=== PATIENT | female | born 1990 | race Caucasian/White ===

== ENCOUNTER 2018-01-22 22:00 | Inpatient (IN) | payer BC ==
[2018-01-22 22:40] VITALS: BMI 32.6
[2018-01-22] MEDS ORDERED: Ondansetron HCl/PF 4 MG/2 ML Vial IVP PRN (23:15)
[2018-01-22] MEDS ORDERED: Promethazine HCl 25 MG/ML VIAL IM PRN (23:15)
[2018-01-22] MEDS ORDERED: Acetaminophen 500 MG TAB PO PRN (23:15)
[2018-01-22 23:19] LABS: Hemoglobin 13.1 g/dL (12.0-16.0); Mean Corpuscular HGB CONC 35.3 g/dL (32.0-36.0); Mean Corpuscular Hemoglobin 32.5 pg (27.0-31.0); Mean Platelet Volume 10.5 fL (7.4-10.4); Platelet Count 140 thou/uL (130-400); RBC Distribution Width 11.6 % (11.5-14.5); Red Blood Cell (RBC) Count 4.03 mill/uL (4.20-5.40); White Blood Cell (WBC) Count 11.2 thou/uL (4.8-10.8)
[2018-01-22] MEDS: Lactated Ringer's 1,000 ML IV SCH (23:23)
[2018-01-22] MEDS ORDERED: LR / Pitocin 40 units/1000 ml 40 UNITS/1,000 ML BAG IV PRN (23:23)
[2018-01-22] MEDS: Misoprostol 100 MCG TAB VAG PRN (23:28)
[2018-01-22] MEDS ORDERED: Ibuprofen 800 MG TAB PO PRN (23:30)
[2018-01-22] MEDS ORDERED: Misoprostol 200 MCG TAB RC PRN (23:30)
[2018-01-22] MEDS ORDERED: Lidocaine 1% (PF) 30 ML VIAL SC PRN (23:30)
[2018-01-22] MEDS ORDERED: LR 500 ML/Oxytocin 10 units 500 ML IV SCH ×2 (23:30)
[2018-01-22] MEDS ORDERED: HYDROcodone/Acetaminophen 5/325 mg Tablet PO PRN (23:30)
[2018-01-22 23:56] LABS: Syphilis Antibody Nonreactive (Nonreactive); Syphilis Antibody Index 0.02 S/CO (<1.00 Non-Reactive)
[2018-01-23 00:35] LABS: HBSAg Index 0.14 S/CO (0-0.99); Hep B Surf Ag Non-Reactive S/CO (NonReactive)
[2018-01-23] MEDS: Misoprostol 100 MCG TAB VAG PRN (02:43)
[2018-01-23] MEDS: Lactated Ringer's 1,000 ML IV SCH ×3 (05:29→13:49)
[2018-01-23] MEDS ORDERED: Penicillin G Potassium 5 MILL.UNITS in Sodium Chloride 0.9% 100 ML IVPB SCH (07:00)
[2018-01-23] MEDS ORDERED: DISCONTINUE ALL PREVIOUS NARCOTICS FS SCH (09:30)
[2018-01-23] MEDS ORDERED: Eucerin (Mineral Oil/Petrolatum,White) 30 gm Jar TOP PRN ×2 (11:02→19:46)
[2018-01-23] MEDS ORDERED: Ondansetron HCl/PF 4 MG/2 ML Vial IVP PRN ×6 (11:02→21:16)
[2018-01-23] MEDS ORDERED: Promethazine HCl 25 MG/ML VIAL IM PRN ×3 (11:02→20:57)
[2018-01-23] MEDS ORDERED: Lactated Ringer's 500 ML IV PRN (11:02)
[2018-01-23] MEDS: Bupivacaine 0.5% 20 ML, Fentanyl 400 MCG in Sodium Chloride 0.9% 72 ML EPIDURAL SCH ×2 (11:02→17:40)
[2018-01-23] MEDS ORDERED: diphenhydrAMINE 50 MG/ML VIAL IVP PRN ×3 (11:02→20:57)
[2018-01-23] MEDS ORDERED: ePHEDrine/0.9% NaCl/PF SYRINGE 50 mg/10 ml SLOW IVP PRN (11:02)
[2018-01-23] MEDS ORDERED: Naloxone HCl 0.4 mg/ml Vial IVP PRN ×6 (11:02→20:57)
[2018-01-23] MEDS ORDERED: Acetaminophen 325 MG TAB PO PRN ×2 (11:02→21:16)
[2018-01-23] MEDS ORDERED: Communication Order-Pharmacy FS SCH ×3 (11:15→21:00)
[2018-01-23] MEDS ORDERED: Fentanyl 4mcg/Marcaine 0.1% Cassette 100 ML EPIDURAL SCH (11:15)
[2018-01-23] MEDS: Penicillin G Potassium 2.5 MILL.UNITS in Sodium Chloride 0.9% 100 ML IVPB SCH ×2 (17:42→17:48)
[2018-01-23] MEDS ORDERED: Penicillin G 2.5 MILL.units 50 ML ONE (18:24)
[2018-01-23] MEDS ORDERED: Penicillin G Potassium 2.5 MILL.UNITS in Sodium Chloride 0.9% 50 ML IVPB SCH (19:00)
[2018-01-23] MEDS ORDERED: Bicitra 30 ML UDCUP ONE (19:22)
[2018-01-23] MEDS ORDERED: CEFAZOLIN/Water 2 GM/20 ML SYRINGE ONE (19:23)
[2018-01-23] MEDS ORDERED: Fentanyl 100 MCG/2 ML VIAL ONE (19:24)
[2018-01-23] MEDS ORDERED: Morphine PF 1 MG/ML SYR ONE (19:33)
[2018-01-23] MEDS ORDERED: Ondansetron HCl/PF 4 MG/2 ML Vial ONE (19:34)
[2018-01-23] MEDS ORDERED: Dexamethasone 4 mg/ml Vial ONE (19:34)
[2018-01-23] MEDS ORDERED: Oxytocin 10 UNITS/ML VIAL ONE (19:34)
[2018-01-23] MEDS ORDERED: Ketorolac Tromethamine 30 MG/ML VIAL ONE (19:34)
[2018-01-23] MEDS ORDERED: Naloxone HCl 0.4 mg/ml Vial IV PRN ×2 (19:46→20:57)
[2018-01-23] MEDS ORDERED: Ketorolac Tromethamine 30 MG/ML VIAL IVP PRN ×2 (19:46→20:57)
[2018-01-23] MEDS ORDERED: HYDROmorphone 2 MG/ML VIAL SLOW IVP PRN ×2 (19:46→20:57)
[2018-01-23] MEDS ORDERED: Meperidine HCl/PF 25 MG/ML VIAL SLOW IVP PRN ×2 (19:46→20:57)
[2018-01-23] MEDS ORDERED: Promethazine HCl 25 MG SUPP PR PRN ×2 (19:46→20:57)
[2018-01-23] MEDS ORDERED: Ketorolac Tromethamine 30 MG/ML VIAL IVP SCH ×2 (20:00→21:00)
[2018-01-23] MEDS ORDERED: Hydrocerin (Eucerin) Cream 120 gm Jar TOP PRN (20:57)
[2018-01-23] MEDS ORDERED: Bisacodyl 10 MG SUPP PR PRN (21:16)
[2018-01-23] MEDS ORDERED: Lanolin Ointment 7 GM TUBE TOP PRN (21:16)
[2018-01-23] MEDS ORDERED: Ferrous Sulfate 325 MG TAB PO SCH (21:45)
[2018-01-23] MEDS ORDERED: Docusate Calcium (SURFAK) 240 MG CAP PO SCH (21:45)
[2018-01-23] MEDS ORDERED: Meperidine HCl/PF 25 MG/ML VIAL ONE (21:46)
[2018-01-23] MEDS ORDERED: Morphine 2 MG/ML SYRINGE ONE (22:58)
--- NOTE | 2018-01-24 00:30 | OP ---
DATE OF PROCEDURE: 01/23/2018 PRIMARY OB: Sonya Cazares MD PREOPERATIVE DIAGNOSES: 1. Intrauterine at 40 and 6 days. 2. Nonreassuring heart tones. 3. Remote from delivery. POSTOPERATIVE DIAGNOSES: 1. 40 weeks and 6-day intrauterine . 2. Nonreassuring heart tones. 3. Straight occiput posterior presentation. 4. Body and arm cord. PROCEDURE: Primary lower transverse section. ANESTHESIA: Epidural. SURGEON: José Miguel Sanchez MD AERIAL TRAM OPERATOR: Sonya Cazares MD COMPLICATIONS: None. COUNTS: Correct. ESTIMATED BLOOD LOSS: 800 mL. URINE: Clear at the end of procedure. FINDINGS: Male infant in OP presentation at 40 weeks and 6 days. Apgars are 9 and 9. Weight is jose vailable at the time of dictation. The infant at time of delivery was noted to have a body and an ar m cord. INDICATIONS FOR PROCEDURE: Ms. Penny Velásquez is a 27-year-old female who was admitted to [facility] for induction of labor, had elective induction of labor at 40 weeks and 6 days, who progressed to 8 cm throughout the laboring process. The fetus was noted to have multiple variables that have w orsened with time and became more severe and deep, such that Pitocin was turned off for several hours with persisting and worsening variable decelerations. Fetus was felt to be asynclitic and OP. Dr. Cazares and her patient discussed her options and recommended , which I agreed was the best nex t option for her. DESCRIPTION OF PROCEDURE: After discussing the risks and benefits, the patient was taken to the oper ating room with a bolused epidural and placed in dorsal supine position with a leftward tilt. She wa s prepped and draped in normal sterile fashion. A Pfannenstiel skin incision was made down to the le nasrin of the fascia, which was then incised and extended laterally sharply with Wendy clamps. The fas ginette was then sharply and bluntly dissected off the underlying rectus muscles inferiorly and superiorl y. Peritoneal cavity was entered into bluntly and extended bluntly and sharply. An Jerry O retract or was then inserted for better visualization. A hysterotomy was performed in a lower transverse fas hion and extended with bandage scissors. Infant was noted to be straight OP presentation and was del ivered through the hysterotomy successfully to the sterile field. The infant was then bulb suctioned and the cord was clamped and cut after approximately 1 minute and handed off to the awaiting attenda nts. The placenta was removed manually and uterus was cleared of all clot and debris. The hysteroto my was then closed with #1 Monocryl in a running locked fashion followed by a second imbricating laye r. The serosal edge continued to bleed some and then it was closed with a 3-0 chromic. The Jerry O was removed and the peritoneum was then closed with 3-0 chromic after irrigation and good hemostasis was noted. The fascia was then closed after inspection of the underlying fascia and musculature for hemostasis as the patient has continued to slowly ooze and bleed from the skin down to the muscle. Once the fascia and the muscle were inspected for bleeding, the fascia was closed with 0 Vicryl in a running fashion. The subcutaneous fat was closed in 2 layers with a 2-0 plain gut in an effort to he lp with the hemostasis and close space. The skin was closed with 4-0 Monocryl. The patient was then taken out of leftward supine position and a pressure dressing was applied. The patient was taken to recovery room in stable condition.
[2018-01-24] MEDS: Simethicone Chewable 80 MG TAB PO PRN ×2 (03:10→21:55)
[2018-01-24] MEDS: diphenhydrAMINE 25 MG CAP PO PRN ×2 (04:10→21:55)
[2018-01-24 06:04] LABS: Hemoglobin 11.7 g/dL (12.0-16.0); Mean Corpuscular HGB CONC 33.9 g/dL (32.0-36.0); Mean Corpuscular Hemoglobin 31.5 pg (27.0-31.0); Mean Corpuscular Volume 92.7 fl (81.0-99.0); Mean Platelet Volume 10.1 fL (7.4-10.4); Platelet Count 121 thou/uL (130-400); RBC Distribution Width 11.6 % (11.5-14.5); Red Blood Cell (RBC) Count 3.71 mill/uL (4.20-5.40)
[2018-01-24] MEDS: Ferrous Sulfate 325 MG TAB PO SCH ×2 (08:08→18:04)
[2018-01-24] MEDS: Prenatal Vitamin 1 TAB PO SCH (08:37)
[2018-01-24] MEDS: HYDROcodone/Acetaminophen 5/325 mg Tablet PO PRN ×2 (08:38→21:56)
[2018-01-24] MEDS: Docusate Calcium (SURFAK) 240 MG CAP PO SCH ×2 (08:40→21:55)
[2018-01-24] MEDS: Ibuprofen 800 MG TAB PO SCH ×2 (13:20→21:55)
[2018-01-24] MEDS ORDERED: Lidocaine 2% MPF 10 ML AMP (For Epidural Use) ONE (16:52)
[2018-01-25] MEDS: Ibuprofen 800 MG TAB PO SCH ×3 (05:14→21:39)
[2018-01-25] MEDS ORDERED: Ibuprofen 800 MG TAB PO SCH (06:00)
[2018-01-25] MEDS: Ferrous Sulfate 325 MG TAB PO SCH ×2 (07:41→14:04)
[2018-01-25] MEDS: Prenatal Vitamin 1 TAB PO SCH (09:43)
[2018-01-25] MEDS: Docusate Calcium (SURFAK) 240 MG CAP PO SCH ×2 (09:43→19:59)
[2018-01-25] MEDS: HYDROcodone/Acetaminophen 5/325 mg Tablet PO PRN ×3 (09:51→21:39)
[2018-01-25] MEDS: Simethicone Chewable 80 MG TAB PO PRN ×2 (13:51→19:59)
[2018-01-26] MEDS: Ibuprofen 800 MG TAB PO SCH ×3 (05:44→21:14)
[2018-01-26] MEDS: Ferrous Sulfate 325 MG TAB PO SCH ×2 (08:45→18:13)
[2018-01-26] MEDS: Docusate Calcium (SURFAK) 240 MG CAP PO SCH ×2 (08:45→21:17)
[2018-01-26] MEDS: Prenatal Vitamin 1 TAB PO SCH (08:45)
[2018-01-26] MEDS: Simethicone Chewable 80 MG TAB PO PRN (14:07)
[2018-01-26] MEDS: HYDROcodone/Acetaminophen 5/325 mg Tablet PO PRN (14:07)
[2018-01-27] MEDS: HYDROcodone/Acetaminophen 5/325 mg Tablet PO PRN ×2 (00:20→09:32)
[2018-01-27] MEDS: Ibuprofen 800 MG TAB PO SCH (06:10)
[2018-01-27 08:51] VITALS: TEMP 98
[2018-01-27] MEDS: Ferrous Sulfate 325 MG TAB PO SCH (09:31)
[2018-01-27] MEDS: Prenatal Vitamin 1 TAB PO SCH (09:32)
[2018-01-27] MEDS: Docusate Calcium (SURFAK) 240 MG CAP PO SCH (09:33)
--- NOTE | 2018-01-27 10:51 | PDOC.PP ---
Post Progress Note Post Day #: 4 Subjective: No complaints, going much better yesterday PM and overnight PO intake tolerated: yes Flatus: yes Ambulation: yes Vital Signs (12 hours) Temp Pulse Resp BP BP 01/27/18 08:45 98.0 F 77 20 140/93 H 01/27/18 07:50 98.0 F 77 20 01/27/18 00:15 98.2 F 62 18 129/76 Weight Weight 215 lb - Physical Examination General: NAD Cardiovascular: no m/r/g, RRR Respiratory: clear to auscultation bilaterally, non-labored breathing Abdominal: + bowel sounds, lochia, no distention, appropriately TTP Skin: CS incision dry & intact, no rash Psychiatric: A&Ox3, normal affect Result Diagrams: 01/24/18 05:09 Additional Labs: Post Labs Hep Bs Antigen Non-Reactive S/CO (NonReactive) 01/22/18 22:51 (1) delivery delivered Code(s): O82 - ENCOUNTER FOR DELIVERY WITHOUT INDICATION Status: Acute - Assessment/Plan Post op day number 4, doing well. Routine care. Discharge home today. F/U in 2 weeks with me. Baby to F/U on Tuesday to check in about feeding.
[2018-01-27 14:04] VITALS: BP 136/83
== END 2018-01-27 13:55 | disposition home or self-care (01) | DRG 766 ==
LOC: L&D 22:02 → 3SW 01-23 23:22
PROVIDERS: ADMIT Family Medicine; ATTEND Family Medicine
PROC: 10D00Z1 Extraction of Products of Conception, Low, Open Approach (ICD-10-PCS; principal; 2018-01-23)
PROC: 3E033VJ Introduction of Other Hormone into Peripheral Vein, Percutaneous Approach (ICD-10-PCS; 2018-01-23)
PROC: 0U7C7ZZ Dilation of Cervix, Via Natural or Artificial Opening (ICD-10-PCS; 2018-01-23)
DX: O48.0 Post-term pregnancy (principal); J45.909 Unspecified asthma, uncomplicated; O32.8XX0 Maternal care for other malpresentation of fetus, not applicable or unspecified; O69.89X0 Labor and delivery complicated by other cord complications, not applicable or unspecified; O99.824 Streptococcus B carrier state complicating childbirth; Z37.0 Single live birth; Z3A.40 40 weeks gestation of pregnancy; O76 Abnormality in fetal heart rate and rhythm complicating labor and delivery
CPT/HCPCS: 36415; 51702; 85027; 86780; 87340; C1726; J0131; J1100; J1885; J2001; J2175; J2270; J2274; J2310; J2405; J2540; J2590; J3010; J3490; J7050; J7120

== ENCOUNTER 2021-01-20 13:31 | Outpatient (CLI) | payer OTHER ==
[2021-01-21 03:09] LABS: SARS-CoV-2 PCR by NAA Not Detected (NotDetected)
== END 2021-01-20 13:32 | disposition home or self-care (01) ==
LOC: LABBT 13:31
PROVIDERS: ATTEND Family Medicine
DX: Z20.822 Contact with and (suspected) exposure to COVID-19 (principal)
CPT/HCPCS: 87635; U0003; U0005

== ENCOUNTER 2021-10-14 07:02 | Outpatient (CLI) | payer OTHER | END 2021-10-14 07:03 | disposition home or self-care (01) | LOC: BICULT 07:02 | PROVIDERS: ATTEND Family Medicine | DX: O26.851 Spotting complicating pregnancy, first trimester (principal); Z3A.01 Less than 8 weeks gestation of pregnancy | CPT/HCPCS: 76856 ==